=== PATIENT | female | born 1985 | race Caucasian/White ===

== ENCOUNTER → 2016-04-29 | Outpatient (CLI) | payer OTHER ==
--- NOTE | 2016-04-29 12:59 | US ---
EXAMINATION TYPE: US transvaginal DATE OF EXAM: 04/29/2016 12:27 PM COMPARISON: NONE CLINICAL HISTORY: N92.0 MENORRHAGIA. Irregular cycles, pre ablation testing, 3 c-sections TECHNIQUE: TV Date of LMP: 04/05/2016 EXAM MEASUREMENTS: Uterus: 8.9 x 6.1 x 5.3 cm Endometrial Stripe: 1.7 cm Right Ovary: 2.8 x 2.1 x 2.6 cm Left Ovary: 3.0 x 2.4 x 2.2 cm TECHNOLOGIST IMPRESSION: 1. Uterus: Anteverted wnl 2. Endometrium: thickened 3. Right Ovary: wnl 4. Left Ovary: wnl 5. Bilateral Adnexa: wnl 6. Posterior cul-de-sac: wnl Uterus is heterogeneous in appearance. Endometrium is mildly thickened for secretory phase of menstru al cycle. No free fluid in pelvis is seen. Both ovaries are identified. No suspicious adnexal masses are seen. IMPRESSION: Abnormal thickening of endometrium is confirmed.
== END | disposition home or self-care (01) ==
LOC: RADUSWWP 12:03
PROVIDERS: ATTEND Obstetrics & Gynecology
DX: R93.8 Abnormal findings on diagnostic imaging of other specified body structures (principal)
CPT/HCPCS: 76830

== ENCOUNTER 2016-06-20 05:57 | Day surgery (SDC) | payer OTHER ==
[2016-06-18 15:25] VITALS: BMI 36.0
--- NOTE | 2016-06-19 08:00 | P.HPOB ---
History of Present Illness H&P Date: 06/19/16 Chief Complaint: Menorrhagia. This patient is a pleasant 31 yr female who is presenting for Novasure endometrial ablation secondary to menorrhagia. Her history is such that she has a long history of heavy/long menstrual bleeding. Ultrasound was unremarkable. She is not a candidate for hormone therapy due to known antiphopholipid antibody syndrome and tobacco use. She is requesting endometrial ablation for treatment. Review of Systems Constitutional: Denies chills, Denies fever Ears, nose, mouth and throat: Denies headache, Denies sore throat Cardiovascular: Denies chest pain, Denies shortness of breath Respiratory: Denies cough Gastrointestinal: Denies abdominal pain, Denies diarrhea, Denies nausea, Denies vomiting Genitourinary: Reports as per HPI Menstruation: Reports menses 8 or > days, Reports period heavy Musculoskeletal: Denies myalgias Integumentary: Denies pruritus, Denies rash Neurological: Denies numbness, Denies weakness Psychiatric: Denies anxiety, Denies depression Endocrine: Denies fatigue, Denies weight change Past Medical History Past Medical History: Blood Disorder Additional Past Medical History / Comment(s): Known anti-cardiolipin antibody. IRREGULAR PERIODS History of Any Multi-Drug Resistant Organisms: None Reported Past Surgical History: Section, Tonsillectomy, Tubal Ligation Past Anesthesia/Blood Transfusion Reactions: No Reported Reaction Past Psychological History: No Psychological Hx Reported Smoking Status: Current every day smoker Past Alcohol Use History: Occasional Additional Past Alcohol Use History / Comment(s): SMOKES 1 PPD SINCE 1999 Past Drug Use History: None Reported - Past Family History Mother Family Medical History: No Reported History Medications and Allergies Home Medications Medication Instructions Recorded Confirmed Type No Known Home Medications [No 06/18/16 06/18/16 History Known Home Medications] Allergies Allergy/AdvReac Type Severity Reaction Status Date / Time No Known Allergies Allergy Verified 06/18/16 15:14 Exam - Vital Signs Vital signs: Intake and Output 06/18/16 06/19/16 06/19/16 22:59 06:59 14:59 Other: Weight 104.326 kg - OBG Physical Exam Abdomen: bowel sounds normal, no diffuse tenderness, no bruit present, no guarding noted, no hepatomegaly, no splenomegaly, no mass Vulva: both: normal Vagina: normal moisture, no discharge Cervix: no lesion, no discharge Uterus: normal size, normal contour Results Ultrasound on 04/29 demonstrated an normal uterus with mild endometrial thickening (1.7 cm). Assessment and Plan (1) Menorrhagia Narrative/Plan: This is a pleasant 31 yr female with longstanding menorrhagia who is requesting endometrial ablation for treatment. I have discussed this surgery with her in detail, including the risks: infection, bleeding, possible uterine perforation and/or thermal injury. All of the patients questions were answered and a written consent was obtained. Plan is hysteroscopy, D&C, and Novasure endometrial ablation. Status: Chronic
[~2016-06-20 05:57] MED LIST: DEXAMETHASONE SOD PHOSPHATE 10 MG/ML 1 ML VIAL IV ONE; HYDROmorphone 1 MG/ML 1 ML SYRINGE IVP PRN; LACTATED RINGERS 1,000 ML IV SCH; LIDOCAINE 1% 20 ML VIAL (10MG/ML) FOR IV START INTRADERMA PRN; ONDANSETRON 4 MG/2 ML VIAL IVP ONE; Pre Op ABX Message 1 EACH MISC MISCELLANE ONE; SCOPOLAMINE 1.5MG/72HR PATCH TRANSDERM ONE
[2016-06-20] MEDS ORDERED: KETOROLAC 30 MG/ML 1 ML VIAL ONE (06:59)
[2016-06-20] MEDS ORDERED: LIDOCAINE 1% INJ 10MG/ML (20 ML MDV) ONE (06:59)
[2016-06-20] MEDS ORDERED: MIDAZOLAM 2 MG/2 ML VIAL ONE (06:59)
[2016-06-20] MEDS ORDERED: fentaNYL (PF) 50 MCG/ML 2 ML AMP ONE (06:59)
[2016-06-20] MEDS ORDERED: SUCCINYLCHOLINE CHLORIDE 100 MG/5 ML SYR IV ONE (06:59)
[2016-06-20] MEDS ORDERED: PROPOFOL 10 MG/ML 20 ML VIAL IV ONE (06:59)
--- NOTE | 2016-06-20 07:35 | P.OP ---
Date of Procedure: 06/20/16 Preoperative Diagnosis: Menorrhagia Postoperative Diagnosis: Same Procedure(s) Performed: #1: Hysteroscopy. #2: Dilation and curettage. #3: NovaSure endometrial ablation. Anesthesia: BHASKARA Surgeon: Clive Bustos Estimated Blood Loss (ml): 10 Urine output (ml): 25 Pathology: other (Uterine curettings) Condition: stable Disposition: PACU Indications for Procedure: Please see dictated H&P for intimate details of this patient's admission. Brief summary is a pleasant 31-year-old multiparous patient status post tubal ligation who is having persistent and refractory menorrhagia requesting endometrial ablation for treatment. Patient does understand the surgery and risks including risks of infection, bleeding, possible uterine perforation, and/ or thermal injury. All the patient's questions are answered and a written consent is obtained. Operative Findings: This patient had a normal-appearing endometrial cavity without evidence of polyps fibroids or other growths. Description of Procedure: This patient is taken to the operating room where she is laid in the supine position. She subsequently undergoes general endotracheal anesthesia without incident. With an adequate level of anesthesia she's placed in dorsal lithotomy position. She has a vaginal perineal prep and drape. Examination under anesthesia shows a mid position uterus of normal size. A weighted speculum was placed in the posterior vagina. Bladder is drained for 25 mL of clear urine. The anterior lip of the cervix is grabbed with an Allis clamp. Uterus is then sounded to 9 cm. Gentle dilation is then done of the endocervix to allow the hysteroscope easily and the uterine cavity. Hysteroscopy is performed using saline solution. Cavity length was calculated to be 6.0 cm in length. With this done the hysteroscope was removed. Cervix is dilated more to allow a small curette easily and uterine cavity. Sharp curettage of all 4 quadrants is then done. This done the NovaSure device is then opened it appears to be intact. Gently seated in place and opens up to a width of 4.6 cm. NovaSure passes the cavity integrity test is then enabled 152 W setting for 59 seconds. The NovaSure device is then removed and appears to be intact. Hysteroscopy is then performed and the uterine cavity appears to be completely ablated up to the endocervix. With this done the procedure is then terminated. The Allis clamp and weighted speculum removed. All counts are correct 3. There are no complications. Patient is taken recovery room satisfactory condition.
[2016-06-20 07:49] VITALS: TEMP 97.8
[2016-06-20 07:50] VITALS: RESP 16
[2016-06-20 08:58] VITALS: BP 140/96; PULSE 71
== END 2016-06-20 09:13 | disposition home or self-care (01) ==
LOC: OR 05:57
PROVIDERS: ATTEND Obstetrics & Gynecology
DX: N92.0 Excessive and frequent menstruation with regular cycle (principal); F17.200 Nicotine dependence, unspecified, uncomplicated
CPT/HCPCS: 81025; 88305; 58563; J2250; J1100; J2405; J2001; J3010; J1885; J0330; J2704

== ENCOUNTER → 2021-12-24 | Outpatient (CLI) | payer OTHER ==
--- NOTE | 2021-12-25 08:13 | MM ---
Reason for Exam: Screening (asymptomatic). Baseline mammogram. Patient History: Menarche at age 11. First Full-Term at age 24. Premenopausal. Last menstrual period: 12/17/2021 Risk Values: Beverley 5 year model risk: 0.5%. NCI Lifetime model risk: 11.2%. Prior Study Comparison: Patient's first Mammogram. Tissue Density: There are scattered fibroglandular densities. Findings: Analyzed By CAD. There is no suspicious group of microcalcifications or new suspicious mass in either breast. Overall Assessment: Negative, BI-RAD 1 Management: Screening Mammogram of both breasts in 1 year. A clinical breast exam by your physician is recommended on an annual basis and results should be correlated with mammographic findings. Electronically signed and approved by: Toan Montilla M.D. [facility]iolog[facility]
== END | disposition home or self-care (01) ==
LOC: RADMAMWWP 11:01
PROVIDERS: ATTEND Obstetrics & Gynecology
DX: Z12.31 Encounter for screening mammogram for malignant neoplasm of breast (principal)
CPT/HCPCS: 77063; 77067